=== PATIENT | male | born 1930 | race Caucasian/White ===

== ENCOUNTER 2016-06-02 07:43 | Outpatient (CLI) | payer MEDICARE | END 2016-06-02 07:44 | disposition home or self-care (01) | DX: I48.91 Unspecified atrial fibrillation (principal) ==

== ENCOUNTER 2016-06-10 08:35 | Outpatient (CLI) | payer MEDICARE | END 2016-06-10 08:36 | disposition home or self-care (01) | DX: M79.1 Myalgia (principal) ==

== ENCOUNTER 2016-06-16 13:56 | Outpatient (CLI) | payer MEDICARE | END 2016-06-16 13:57 | disposition home or self-care (01) | DX: I48.91 Unspecified atrial fibrillation (principal) ==

== ENCOUNTER 2016-06-23 09:37 | Outpatient (CLI) | payer MEDICARE | END 2016-06-23 09:38 | disposition home or self-care (01) | DX: I48.91 Unspecified atrial fibrillation (principal) ==

== ENCOUNTER 2017-06-09 09:19 | Outpatient (CLI) | payer MEDICARE ==
[2017-06-09 10:21] LABS: ALT ALANINE AMINOTRANSFERASE 18 IU/L (10-60); AST ASPARTATE AMINOTRANSFERASE 24 IU/L (10-42); CHOL/HDL RATIO 4.1 (<5.0); CHOLESTEROL 171 mg/dL; HDL CHOLESTEROL 42 mg/dL; LDL CHOLESTEROL,CALCULATED 110 mg/dL; LDL/HDL RATIO 2.6 (<3.6); VLDL CHOLESTEROL 19 mg/dL
== END 2017-06-09 09:20 | disposition home or self-care (01) ==
LOC: LAB 09:19
PROVIDERS: ATTEND Internal Medicine
DX: E78.2 Mixed hyperlipidemia (principal)
CPT/HCPCS: 36415; 80061; 84450; 84460

== ENCOUNTER 2017-11-10 10:15 | Outpatient (CLI) | payer MEDICARE ==
--- NOTE | 2017-11-11 15:46 | MRI Report ---
Procedure Date: 11/10/2017 Accession Number: [id number] / [id number] Procedure: MRI - Brain W/O CPT Code: FULL RESULT: 11/11/2017 MRI OF THE BRAIN WITHOUT CONTRAST. HISTORY: Cognitive changes. COMPARISON: None TECHNIQUE: Multiplanar, multisequence MRI of the brain was performed without intravenous contrast. Post-processin. NeuroQuant volumetric analysis was performed as an objective measure of hippocampal volume loss and asymmetry that is associated with an increased risk of Alzheimer's type dementia. All analyses were performed on a separate, standalone workstation. FINDINGS: No cerebellar tonsillar ectopia is present. No abnormal diffusion signal or magnetic susceptibility is present in the brain parenchyma. Subcortical and deep white matter FLAIR hyperintensities are seen in the cerebral hemisphere white matter bilaterally. A punctate T2 hyperintensity is seen in the right cerebellum and in the posterior left lower mayra. An expected flow void is seen in the major intracranial vessels at the skull base. No mass is present in either orbit. The degree of sulcal prominence greater than expected for the patient's age. There is motion degradation on some of the imaging sequences. No orbital mass is present. An expected flow void is seen in the superior sagittal sinus. Quantitative Cerebral Volumetric Analysis: Total cortical lepe matter (percent of ICV): 473 cc (28.5%). Total Hippocampal Volume: 6.0 cc (0.36% 38 normative percentile *). Superior Lateral Ventricular Volume: 86.1 cc (5.2% 93rd normative percentile *). (*After adjustment for age and intracranial volume (ICV).) IMPRESSION: 1. Mild generalized cerebral atrophy. 2. No age inappropriate hippocampal atrophy is present. 3. Small vessel ischemic change is seen in the cerebral hemisphere white matter bilaterally. 4. 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 5. No noncontrast MR evidence of an intracranial mass is identified. RADIA
== END 2017-11-10 10:16 | disposition home or self-care (01) ==
LOC: DI 10:15
PROVIDERS: ATTEND Internal Medicine
DX: G31.9 Degenerative disease of nervous system, unspecified (principal); R41.89 Other symptoms and signs involving cognitive functions and awareness; I67.82 Cerebral ischemia; Z86.73 Personal history of transient ischemic attack (TIA), and cerebral infarction without residual deficits
CPT/HCPCS: 70551

== ENCOUNTER 2017-11-27 13:49 | Outpatient (CLI) | payer MEDICARE ==
[2017-11-27 15:10] LABS: THYROID STIMULATING HORMONE 2.23 uIU/mL (0.34-5.60)
== END 2017-11-27 13:50 | disposition home or self-care (01) ==
LOC: LAB 13:49
PROVIDERS: ATTEND Internal Medicine
DX: R41.89 Other symptoms and signs involving cognitive functions and awareness (principal)
CPT/HCPCS: 36415; 81599; 82607; 84443

== ENCOUNTER 2018-08-03 11:10 | Outpatient (CLI) | payer MEDICARE ==
[2018-08-03 17:40] LABS: HGB - HEMOGLOBIN 14.9 g/dL (14.0-18.0); MEAN CORPUSCULAR HEMOGLOBIN 29.4 pg (27.0-31.0); MEAN CORPUSCULAR HGB CONC 32.9 g/dL (32.0-36.0); MEAN CORPUSCULAR VOLUME 89.4 fL (80.0-94.0); MEAN PLATELET VOLUME 10.7 fL (7.4-11.4); RED BLOOD COUNT 5.06 10^6/uL (4.70-6.10); RED CELL DISTRIBUTION WIDTH 13.5 % (12.0-15.0); WHITE BLOOD COUNT 7.7 x10^3/uL (4.8-10.8)
[2018-08-03 18:08] LABS: ALBUMIN 4.1 g/dL (3.2-5.5); ALBUMIN/GLOBULIN RATIO 1.3 (1.0-2.2); ALKALINE PHOSPHATASE 56 IU/L (42-121); ALT ALANINE AMINOTRANSFERASE 24 IU/L (10-60); AST ASPARTATE AMINOTRANSFERASE 25 IU/L (10-42); BILIRUBIN,TOTAL 0.9 mg/dL (0.2-1.0); BUN - BLOOD UREA NITROGEN 13 mg/dL (6-20); CALCIUM 9.2 mg/dL (8.5-10.3); CARBON DIOXIDE - CO2 28 mmol/L (21-32); CHLORIDE 104 mmol/L (101-111); CHOL/HDL RATIO 3.2 (<5.0); CHOLESTEROL 174 mg/dL; CREATININE 0.9 mg/dL (0.6-1.2); GFR - MDRD 80 (>89); GLUCOSE 111 mg/dL (70-100); HDL CHOLESTEROL 54 mg/dL; LDL CHOLESTEROL,CALCULATED 105 mg/dL; LDL/HDL RATIO 1.9 (<3.6); SODIUM 141 mmol/L (135-145); TOTAL PROTEIN 7.2 g/dL (6.7-8.2); VLDL CHOLESTEROL 15 mg/dL
== END 2018-08-03 11:11 | disposition home or self-care (01) ==
LOC: LAB.F 11:10
PROVIDERS: ATTEND Internal Medicine
DX: I48.0 Paroxysmal atrial fibrillation (principal); E78.5 Hyperlipidemia, unspecified
CPT/HCPCS: 36415; 80053; 80061; 83721; 84443; 85027

== ENCOUNTER 2019-06-07 09:54 | Outpatient (CLI) | payer MEDICARE ==
[2019-06-07 10:26] LABS: RED CELL DISTRIBUTION WIDTH 12.6 % (12.0-15.0)
[2019-06-07 10:29] LABS: BASOPHILS # (AUTO) 0.1 10^3/uL (0.0-0.1); BASOPHILS % (AUTO) 0.6 %; EOSINOPHILS # (AUTO) 1.3 10^3/uL (0.0-0.7); EOSINOPHILS % (AUTO) 15.9 %; HGB - HEMOGLOBIN 15.3 g/dL (14.0-18.0); LYMPHOCYTES # (AUTO) 1.5 10^3/uL (1.5-3.5); LYMPHOCYTES % (AUTO) 18.9 %; MEAN CORPUSCULAR HEMOGLOBIN 30.2 pg (27.0-31.0); MEAN CORPUSCULAR HGB CONC 32.4 g/dL (32.0-36.0); MEAN CORPUSCULAR VOLUME 93.1 fL (80.0-94.0); MEAN PLATELET VOLUME 11.5 fL (7.4-11.4); MONOCYTES # (AUTO) 0.7 10^3/uL (0.0-1.0); MONOCYTES % (AUTO) 8.8 %; NEUTROPHILS # (AUTO) 4.5 10^3/uL (1.5-6.6); NEUTROPHILS % (AUTO) 55.6 %; PLT - PLATELET COUNT 164 10^3/uL (130-450); RED BLOOD COUNT 5.07 10^6/uL (4.70-6.10); WHITE BLOOD COUNT 8.1 x10^3/uL (4.8-10.8)
[2019-06-07 10:41] LABS: HB2 TOTAL 15.3 g/dL; HEMOGLOBIN A1C 0.64 g/dL
[2019-06-07 10:59] LABS: ALBUMIN 4.2 g/dL (3.2-5.5); ALBUMIN/GLOBULIN RATIO 1.3 (1.0-2.2); ALKALINE PHOSPHATASE 48 IU/L (42-121); ALT ALANINE AMINOTRANSFERASE 17 IU/L (10-60); AST ASPARTATE AMINOTRANSFERASE 21 IU/L (10-42); BILIRUBIN,TOTAL 0.9 mg/dL (0.2-1.0); BUN - BLOOD UREA NITROGEN 14 mg/dL (6-20); CALCIUM 9.4 mg/dL (8.5-10.3); CARBON DIOXIDE - CO2 28 mmol/L (21-32); CHLORIDE 104 mmol/L (101-111); CHOL/HDL RATIO 3.9 (<5.0); CHOLESTEROL 183 mg/dL; CREATININE 1.1 mg/dL (0.6-1.2); GFR - MDRD 63 (>89); GLUCOSE 105 mg/dL (70-100); HDL CHOLESTEROL 47 mg/dL; LDL CHOLESTEROL,CALCULATED 116 mg/dL; LDL/HDL RATIO 2.5 (<3.6); SODIUM 140 mmol/L (135-145); TOTAL PROTEIN 7.5 g/dL (6.7-8.2); VLDL CHOLESTEROL 20 mg/dL
[2019-06-07 11:09] LABS: PLATELET ESTIMATE, MANUAL NORMAL (130-450,000) (NORMAL); PLATELET MORPHOLOGY 1+ LARGE PLATELETS (NORMAL); RBC MORPHOLOGY (MULTIPLE) NORMAL APPEARANCE (NORMAL)
== END 2019-06-07 09:55 | disposition home or self-care (01) ==
LOC: LAB 09:54
PROVIDERS: ATTEND Family Medicine
DX: Z79.01 Long term (current) use of anticoagulants (principal); Z79.899 Other long term (current) drug therapy; I48.0 Paroxysmal atrial fibrillation; E78.5 Hyperlipidemia, unspecified; I25.10 Atherosclerotic heart disease of native coronary artery without angina pectoris
CPT/HCPCS: 36415; 80053; 80061; 83036; 83721; 84443; 85025

== ENCOUNTER 2020-02-13 15:22 | Outpatient (CLI) | payer MEDICARE ==
--- NOTE | 2020-02-14 10:19 | Ultrasound Report ---
PROCEDURE: Duplex Lwr Ext Arterial Bilat INDICATIONS: CLAUDICATION DUE TO PERIPHERAL VASCULAR DISEASE TECHNIQUE: Color and pulse Doppler interrogation was performed of both lower extremity arterial systems, with im age documentation. COMPARISON: None available FINDINGS: Right lower extremity: Common femoral artery: 85 cm/sec, with triphasic flow. Deep femoral artery: 46 cm/sec, with biphasic flow. Proximal superficial femoral artery: 136 cm/sec, with triphasic flow. Mid superficial femoral artery: 70 cm/sec, with triphasic flow. Distal superficial femoral artery: 67 cm/sec, with biphasic flow. Popliteal artery: 36 cm/sec, with biphasic flow. Posterior tibial artery: 112 cm/sec, with triphasic flow. Anterior tibial artery/dorsalis pedis: 79 cm/sec, with biphasic flow. Bidirectional flow in the dors lilian pedis artery. [place]-scale imaging description: Moderate quantity of scattered calcification resulting in mild lumin al irregularity. Left lower extremity: Common femoral artery: 74 cm/sec, with triphasic flow. Deep femoral artery: 104 cm/sec, with triphasic flow. Proximal superficial femoral artery: 66 cm/sec, with triphasic flow. Mid superficial femoral artery: 24 cm/sec, with biphasic flow. Distal superficial femoral artery: 28 cm/sec, with monophasic flow. Popliteal artery: 23 cm/sec, with monophasic flow. Posterior tibial artery: 45 cm/sec, with monophasic flow. Anterior tibial artery/dorsalis pedis: 32 cm/sec, with monophasic flow. [place]-scale imaging description: Heavy calcification in the common femoral artery, mid SFA and poplit eal artery. IMPRESSION: 1. Moderate to heavy atherosclerotic calcification in the lower extremities bilaterally, left worse t george right. 2. Decreased velocity and blunted waveforms in the majority of the left lower extremity arterial syst em. No focal velocity elevation to suggest focal stenosis. This is likely secondary to diffuse diseas e. 3. There is two-vessel runoff at the foot bilaterally. Reviewed by: Jenny Amaral MD on 02/14/2020 9:17 AM HEATHER Approved by: Jenny Amaral MD on 02/14/2020 9:17 AM AKAMOS Station ID: [id number]
== END 2020-02-13 15:23 | disposition home or self-care (01) ==
LOC: DI 15:22
PROVIDERS: ATTEND Family Medicine
DX: I70.203 Unspecified atherosclerosis of native arteries of extremities, bilateral legs (principal)
CPT/HCPCS: 93925

== ENCOUNTER 2020-11-01 16:58 | Outpatient (CLI) | payer MEDICARE ==
--- NOTE | 2020-11-02 09:05 | Ultrasound Report ---
PROCEDURE: Carotid Doppler Complete INDICATIONS: TIA TECHNIQUE: Color and pulse Doppler interrogation was performed of both carotid systems, with image documentation and velocity measurements. COMPARISON: None. FINDINGS: Study is markedly limited due to dense atherosclerotic plaques and tortuosity of the vesse ls. Right side: Brachial blood pressure: 125/62 mm Hg. Common carotid artery peak systolic velocity: 113 cm/sec. Internal carotid artery peak systolic velocity: 49.4 cm/sec. Internal carotid artery end diastolic velocity: 12.0 cm/sec. External carotid artery peak systolic velocity: Not visualized. ICA/CCA peak systolic ratio: 0.4 . [place] scale imaging description: Extensive atherosclerotic plaques are noted throughout distal common carotid arteries, proximal internal carotid arteries with suggestion of occluded right external larios tid artery. There is also significant spectral broadening of the carotid artery waveforms. Percent internal carotid artery stenosis: High-grade to near occlusion at its origin . Vertebral artery: Flow direction is antegrade. Left side: Brachial blood pressure: 112/67 mm Hg. Common carotid artery peak systolic velocity: 105.6 cm/sec. Internal carotid artery peak systolic velocity: 48.8 cm/sec. Internal carotid artery end diastolic velocity: 16.4 cm/sec. External carotid artery peak systolic velocity: 32.6 cm/sec. ICA/CCA peak systolic ratio: 0.5 . [place] scale imaging description: Moderate to severe atherosclerotic disease throughout distal common carotid artery and left proximal internal and external carotid arteries are seen. Carotid artery wave forms are seen. Percent internal carotid artery stenosis: High-grade to near complete occlusion near its origin . Vertebral artery: Flow direction is antegrade. IMPRESSION: 1. Limited study due to dense atherosclerotic plaques throughout bilateral carotid arteries and tortu osity of the vessels. 2. Right worse than left moderate to severe atherosclerotic disease throughout bilateral distal commo n carotid arteries and bilateral proximal internal and external carotid arteries with suggestion of o ccluded right external carotid artery at its origin. 3. Suggestion of high-grade stenosis to near occlusion of the bilateral proximal internal carotid art eries at their origins. Consider MR or CT angiogram of the head and neck for further evaluation. The estimate of stenosis included in the report of the imaging study was calculated using the NASCET method Reviewed by: Colin Waite MD on 11/02/2020 9:03 AM PDT Approved by: Colin Waite MD on 11/02/2020 9:03 AM PDT Station ID: [id number]
== END 2020-11-01 16:59 | disposition home or self-care (01) ==
LOC: DI 16:58
PROVIDERS: ATTEND Internal Medicine
DX: I65.23 Occlusion and stenosis of bilateral carotid arteries (principal)
CPT/HCPCS: 93880

== ENCOUNTER 2021-08-30 08:54 | Outpatient (CLI) | payer MEDICARE ==
[2021-08-30 09:14] LABS: BASOPHILS % (AUTO) 1.1 %; HCT - HEMATOCRIT 45.3 % (42.0-52.0); HGB - HEMOGLOBIN 14.4 g/dL (14.0-18.0); LYMPHOCYTES % (AUTO) 17.4 %; MEAN CORPUSCULAR HEMOGLOBIN 29.4 pg (27.0-31.0); MEAN CORPUSCULAR HGB CONC 31.8 g/dL (32.0-36.0); MEAN CORPUSCULAR VOLUME 92.4 fL (80.0-94.0); MEAN PLATELET VOLUME 10.9 fL (7.4-11.4); MONOCYTES % (AUTO) 8.6 %; NEUTROPHILS % (AUTO) 57.7 %; PLT - PLATELET COUNT 176 10^3/uL (130-450); RED CELL DISTRIBUTION WIDTH 12.7 % (12.0-15.0); WHITE BLOOD COUNT 8.5 x10^3/uL (4.8-10.8)
[2021-08-30 09:23] LABS: ABNORMAL LYMPHS % (MANUAL) 0 %; BAND NEUTROPHILS % (MANUAL) 0 %
[2021-08-30 09:30] LABS: ALBUMIN 4.3 g/dL (3.2-5.5); ALBUMIN/GLOBULIN RATIO 1.5 (1.0-2.2); ALKALINE PHOSPHATASE 43 IU/L (42-121); ALT ALANINE AMINOTRANSFERASE 26 IU/L (10-60); AST ASPARTATE AMINOTRANSFERASE 26 IU/L (10-42); BILIRUBIN,TOTAL 0.9 mg/dL (0.2-1.0); BUN - BLOOD UREA NITROGEN 16 mg/dL (6-20); CARBON DIOXIDE - CO2 30 mmol/L (21-32); CHLORIDE 103 mmol/L (101-111); CHOL/HDL RATIO 4.1 (<5.0); CHOLESTEROL 202 mg/dL; CREATININE 0.9 mg/dL (0.6-1.2); GFR - MDRD 79 (>89); GLUCOSE 116 mg/dL (70-100); HDL CHOLESTEROL 49 mg/dL; LDL CHOLESTEROL,CALCULATED 125 mg/dL; LDL/HDL RATIO 2.6 (<3.6); POTASSIUM 4.3 mmol/L (3.5-5.0); SODIUM 141 mmol/L (135-145); TOTAL PROTEIN 7.1 g/dL (6.7-8.2); TRIGLYCERIDES 141 mg/dL; VLDL CHOLESTEROL 28 mg/dL
[2021-08-30 09:41] LABS: LYMPHOCYTES # (MANUAL) 1.4 10^3/uL (1.5-3.5); LYMPHOCYTES % (MANUAL) 17 %; MONOCYTES # (MANUAL) 0.5 10^3/uL (0.0-1.0); NEUTROPHILS # (MANUAL) 5.5 10^3/uL (1.5-6.6)
[2021-08-30 09:42] LABS: THYROID STIMULATING HORMONE 2.68 uIU/mL (0.34-5.60)
[2021-08-30 09:43] LABS: RBC MORPHOLOGY (MULTIPLE) NORMAL APPEARANCE (NORMAL)
[2021-08-30 09:44] LABS: DIFFERENTIAL COMMENT MANUAL DIFFERENTIAL; PLATELET ESTIMATE, MANUAL NORMAL (130-450,000) (NORMAL); PLATELET MORPHOLOGY NORMAL APPEARANCE (NORMAL); WBC MORPHOLOGY (MULTIPLE) NORMAL APPEARANCE (NORMAL)
== END 2021-08-30 08:55 | disposition home or self-care (01) ==
LOC: LAB 08:54
PROVIDERS: ATTEND Family Medicine
DX: I48.0 Paroxysmal atrial fibrillation (principal); R26.81 Unsteadiness on feet; I25.10 Atherosclerotic heart disease of native coronary artery without angina pectoris; B35.1 Tinea unguium; Z79.01 Long term (current) use of anticoagulants; E78.5 Hyperlipidemia, unspecified
CPT/HCPCS: 36415; 80053; 80061; 83721; 84443; 85025

== ENCOUNTER 2021-09-10 08:55 | Outpatient (CLI) | payer MEDICARE ==
[2021-09-10 09:46] LABS: THYROID STIMULATING HORMONE 3.79 uIU/mL (0.34-5.60)
== END 2021-09-10 08:56 | disposition home or self-care (01) ==
LOC: LAB 08:55
PROVIDERS: ATTEND Psychiatry & Neurology Neurology
DX: R26.89 Other abnormalities of gait and mobility (principal); R41.3 Other amnesia
CPT/HCPCS: 36415; 81599; 82607; 82652; 82746; 84443

== ENCOUNTER 2021-09-20 12:02 | Outpatient (CLI) | payer MEDICARE ==
--- NOTE | 2021-09-20 13:37 | XRAY Report ---
PROCEDURE: Lumbar Spine Complete INDICATIONS: LUMBAR STENOSIS WITH NEUROGENIC CLAUDICATION TECHNIQUE: 4 views of the lumbar spine were acquired. COMPARISON: None. FINDINGS: Bones: 5 [id number] vertebrae are present. There is normal bony alignment. Degenerative endpla te changes and bilateral facet arthrosis throughout lumbar spine is seen more prominent at L4-5 and L 5-S1 levels. No vertebral body compression fractures. No suspicious bony lesions. Soft tissues: Overlying bowel gas pattern is normal. No suspicious soft tissue calcifications. Decreased range of motion is noted with flexion and extension with preserved lumbar spine alignment. IMPRESSION: 1. Degenerative disc disease throughout lumbar spine. No acute compression fracture or spondylolisthe sis. 2. Decreased range of motion on lateral flexion and extension views with preserved lumbar spine align ment. Reviewed by: Colni Waite MD on 09/20/2021 1:35 PM PDT Approved by: Colin Waite MD on 09/20/2021 1:35 PM PDT Station ID: [id number]
== END 2021-09-20 12:03 | disposition home or self-care (01) ==
LOC: DI 12:02
PROVIDERS: ATTEND Psychiatry & Neurology Neurology
DX: R26.89 Other abnormalities of gait and mobility (principal); R29.898 Other symptoms and signs involving the musculoskeletal system; M47.816 Spondylosis without myelopathy or radiculopathy, lumbar region